=== PATIENT | male | born 1955 | race Caucasian/White ===

== ENCOUNTER 2020-01-21 11:34 | Emergency (ER) | payer OTHER ==
[~2020-01-21] VITALS: Ht 170.2 cm; Wt 95.3 kg
[2020-01-21 11:55] VITALS: BP 127/70
--- NOTE | 2020-01-21 12:06 | NUR ---
PT AMBULATED WITH WALKER TO ER BED 2
--- NOTE | 2020-01-21 12:23 | NUR ---
PT BIB SELF C/O L LEG AND ANKLE PAIN S/P MECHANICAL CLIP AND FALL. NO LOC/KO. ABRASION NOTED. NO DEFORMITY. AMBULATORY WITH WALKER. PT DENIES N/V/D; AAOX4, PERRL, UNSTEADY GAIT S/P PAIN AND WALKER; LUNGS CLEAR BL, BREATHING UNLABORED; HR EVEN AND REGULAR, BL PERIPHERAL PULSES PRESENT; BS ACTIVE X4, NO TENDERNESS TO PALPATION. PT DENIES ANY FEVER, CP, SOB, OR COUGH AT THIS TIME; PT STATES 5/10 PAIN AT THIS TIME; VSS; PATIENT POSITIONED FOR COMFORT; HOB ELEVATED; BEDRAILS UP X2; BED DOWN.
--- NOTE | 2020-01-21 13:32 | NUR ---
PA BAXTER AT BEDSIDE EVALUATING PATIENT.
[2020-01-21] MEDS ORDERED: BACITRACIN OINT 500 UNITS/GM PKT TP ONE (13:40)
--- NOTE | 2020-01-21 13:53 | NUR ---
EMT DIOGENES AND JONO DOING WOUND CARE , ANTIBACTERIAL APPLIED BY EMT .
[2020-01-21 14:54] VITALS: BP 120/72
--- NOTE | 2020-01-21 14:58 | NUR ---
Patient discharged with v/s stable. Written and verbal after care instructions given and explained regarding skin problem. Patient alert, oriented and verbalized understanding of instructions. Ambulatory with steady gait. All questions addressed prior to discharge. ID band removed. Patient advised to follow up with PMD. Rx of norco and bacitracin given. Patient educated on indication of medication including possible reaction and side effects. Opportunity to ask questions provided and answered.
== END 2020-01-21 14:58 | disposition home or self-care (01) ==
LOC: MED 11:34
DX: S93.402A Sprain of unspecified ligament of left ankle, initial encounter (principal); S80.212A Abrasion, left knee, initial encounter; S80.211A Abrasion, right knee, initial encounter; F03.90 Unspecified dementia, unspecified severity, without behavioral disturbance, psychotic disturbance, mood disturbance, and anxiety; I10 Essential (primary) hypertension; W18.09XA Striking against other object with subsequent fall, initial encounter; Y93.89 Activity, other specified; Y92.89 Other specified places as the place of occurrence of the external cause; Y99.8 Other external cause status
CPT/HCPCS: 73610; 99283; Q0092

== ENCOUNTER 2020-02-05 11:56 | Inpatient (IN) | payer OTHER ==
[~2020-02-05] VITALS: Ht 162.6 cm; Wt 117.5 kg
[2020-02-05] VITALS (39 sets, daily range): BP systolic 57–192; BP diastolic 21–92
--- NOTE | 2020-02-05 11:56 | NUR ---
BIBA TAKEN TO BED 10
--- NOTE | 2020-02-05 12:12 | NUR ---
PHARMACY CALLED FOR AMIODARONE DRIP.
--- NOTE | 2020-02-05 12:19 | NUR ---
airway via cricothyrotomy attempted but unsuccessful
--- NOTE | 2020-02-05 12:28 | NUR ---
7.5 ETT inserted via nasopharyngeal by Dr Alanis
--- NOTE | 2020-02-05 12:35 | NUR ---
FSBS 114 MG/DL
--- NOTE | 2020-02-05 12:40 | NUR ---
UNABLE TO DRAW ABG AT THIS TIME DUE TO HYPOVOLEMIC STATUS AND OCCASIONAL BRADYCARDIA DR. PARESH BOOKER AWARE
[2020-02-05] MEDS ORDERED: TRANEXAMIC ACID 1,000 MG in NACL 0.9% 50 ML IV STA (12:41)
[2020-02-05] MEDS ORDERED: TRANEXAMIC ACID IV ONE (12:45)
[2020-02-05] MEDS ORDERED: ETOMIDATE 20 MG/10 ML VIAL IVP ONE (12:45)
[2020-02-05] MEDS ORDERED: AMIODARONE 450 MG in DEXTROSE 5% 250 ML IV ONE (12:45)
[2020-02-05] MEDS ORDERED: NACL 0.9% IV ONE (12:45)
--- NOTE | 2020-02-05 12:47 | NUR ---
OGT inserted by Tom DERAS
--- NOTE | 2020-02-05 12:55 | NUR ---
XRAY AT BEDSIDE. WAREHOUSE FORKLIFT OPERATOR AT BEDSIDE.
[2020-02-05] MEDS ORDERED: TRANEXAMIC ACID 1,000 MG/10 ML VIAL ONE ×2 (13:06→13:41)
[2020-02-05] MEDS ORDERED: EPINEPHrine PFS 0.1 MG/ML SYR IVP ONE ×5 (13:10→14:58)
--- NOTE | 2020-02-05 13:10 | NUR ---
HR 46, NOTIFIED DR. AMEZCUA, RECEIVED VERBAL ORDER FOR EPI 1 MG IVP. EPI 1MG IVP ADMINISTERED AT THIS TIME.
--- NOTE | 2020-02-05 13:14 | NUR ---
HR: 70 96% NASOPHARYNGEAL TO VENT RR 19 BP 128/62
[2020-02-05] MEDS ORDERED: EPINEPHrine 1:1000 (1 mg/mL) 3 MG in DEXTROSE 5% 250 ML IV PRN ×2 (13:15→18:10)
[2020-02-05 13:16] LABS: BASOPHILS # (AUTO) 0.2 K/uL (0.00-0.22); BASOPHILS % (AUTO) 1.5 % (0.0-2.0); EOSINOPHILS # (AUTO) 0.1 K/uL (0-0.4); EOSINOPHILS % (AUTO) 0.4 % (0.0-4.0); HEMOGLOBIN 8.2 g/dL (12.0-18.0); LYMPHOCYTES # (AUTO) 3.1 K/uL (2.0-11.5); LYMPHOCYTES % (AUTO) 24.4 % (20.5-51.1); MEAN CORPUSCULAR HEMOGLOBIN 31 pg (27-31); MEAN CORPUSCULAR HGB CONC 30 g/dL (33-37); MEAN CORPUSCULAR VOLUME 101.3 fL (80-94); MONOCYTES # (AUTO) 0.5 K/uL (0.8-1.0); MONOCYTES % (AUTO) 3.8 % (1.7-9.3); NEUTROPHILS # (AUTO) 8.8 K/uL (1.8-7.7); NEUTROPHILS % (AUTO) 69.9 % (42.2-75.2); PLATELET COUNT (AUTO) 181 K/uL (140-450); RED BLOOD CELL COUNT(AUTO) 2.67 MIL/uL (4.20-6.10); RED CELL DISTRIBUTION WIDTH 16.1 % (11.6-13.7); WHITE BLOOD COUNT (AUTO) 12.6 K/uL (4.8-10.8)
--- NOTE | 2020-02-05 13:27 | NUR ---
HR 36, NOTIFIED DR. AMEZCUA, RECEIVED VERBAL ORDER FOR EPI 1MG IVP. ADMINISTERED EPI 1MG VIA IVP.
[2020-02-05 13:33] LABS: PROTHROMBIN TIME 17.8 secs (10.8-13.4)
--- NOTE | 2020-02-05 13:34 | NUR ---
64/M BIBA ALS, PT PRESENTING IN FULL ARREST, CPR IN PROGRESS BY EMS. UNRESPONSIVE, GCS 3, NO PULSE, ASTYOLE. ABD IS FIRM AND DISTENDED. IO IN RT TIBIA. ABRASIONS TO BL SHINS. LT UA SHUNT. HX ESRD ON HD. SEE CODE SHEET.
--- NOTE | 2020-02-05 13:39 | NUR ---
PER DR AMEZCUA TITRATE EPI DRIP TO HR GREATER/EQUAL TO 60 BPM
[2020-02-05 13:44] LABS: ALBUMIN 1.9 g/dL (3.4-5.0); TOTAL BILIRUBIN 0.6 mg/dL (0.0-1.0)
--- NOTE | 2020-02-05 13:48 | NUR ---
HR in 30s. Per Dr Alanis, admin EPI 1mg IVP and increase epi drip to 4mcg/min. Patient response: HR increased to 60s
[2020-02-05 13:50] LABS: CREATININE 8.1 mg/dL (0.6-1.3)
--- NOTE | 2020-02-05 13:59 | NUR ---
DR AMEZCUA AWARE UNABLE TO INSERT GARCIA CATH--NO FURTHER ORDERS AT THIS TIME.
--- NOTE | 2020-02-05 14:08 | NUR ---
output from OGT: 500 ML sanguineous drainage
[2020-02-05] MEDS ORDERED: MORPHINE SULFATE 2 MG/ML SYR IVP PRN (14:15)
[2020-02-05] MEDS ORDERED: DOCUSATE 100 MG/10 ML UDC PO PRN (14:15)
[2020-02-05] MEDS ORDERED: HYDROcodone/APAP 5/325 MG 1 TAB TAB PO PRN (14:15)
[2020-02-05] MEDS ORDERED: ZOLPIDEM 5 MG TAB PO PRN (14:15)
[2020-02-05] MEDS ORDERED: LORazepam 2 MG/ML VIAL IM/IVP PRN (14:15)
[2020-02-05] MEDS ORDERED: ONDANSETRON 4 MG/2 ML VIAL IM/IVP PRN (14:15)
[2020-02-05] MEDS ORDERED: ACETAMINOPHEN 325 MG TAB PO PRN (14:15)
[2020-02-05] MEDS ORDERED: NACL 0.9% 1,000 ML IV SCH (14:15)
--- NOTE | 2020-02-05 14:18 | NUR ---
HR DROPPING TO 30S. INCREASED EPI DRIP TO 5 MCG/MIN AT THIS TIME. NOTIFIED DR AMEZCUA.
--- NOTE | 2020-02-05 14:22 | NUR ---
1 MG EPI IVP ADMINISTERED AT THIS TIME PER DR AMEZCUA ORDERS
--- NOTE | 2020-02-05 14:23 | NUR ---
DR AMEZCUA AT BEDSIDE
--- NOTE | 2020-02-05 15:00 | NUR ---
NOTIFIED DR. AMEZCUA OF RECTAL 84.9. RECEIVED ORDER FOR SUE VERGARA.
[2020-02-05 15:13] LABS: CHOL/HDL RATIO 2.2 (1-4.5); MAGNESIUM 3.1 mg/dL (1.8-2.4); THYROID STIMULATING HORMONE 3.93 uIU/mL (0.34-3.74)
[2020-02-05 15:16] LABS: PHOSPHORUS 13.1 mg/dL (2.5-4.9)
--- NOTE | 2020-02-05 15:23 | NUR ---
ABG SAMPLE REPORT REVIEWED BY DR. PARESH CESPEDES NO NEW ORDERS
[2020-02-05] MEDS ORDERED: DEXTROSE 50% 50 ML SYR IVP PRN (15:30)
[2020-02-05] MEDS ORDERED: INSULIN LISPRO SLIDING SCALE 100 UNITS/ML VIAL SUBQ PRN (15:30)
--- NOTE | 2020-02-05 15:30 | NUR ---
PATIENT TRANSFERRED TO ICU-2 VIA VENTILATOR INTACT OXYGEN LINE CONNECTED TO E-TANK BELOW GURNEY SATURATION 96% HR 64 TOLERATED TRANSFER WELL WITHOUT ADVERSE REACTIONS NOTED
--- NOTE | 2020-02-05 15:30 | NUR ---
Pt left ER bed 10 at this time, accompanied by RN & EMT & RT, to transfer to ICU bed 2
[2020-02-05] MEDS ORDERED: NOREPINEPHRINE 8 MG in DEXTROSE 5% 250 ML IV PRN (15:35)
--- NOTE | 2020-02-05 15:42 | NUR ---
ADMITTED FROM ER THIS 64 YEAR OLD MALE PER YOGI ACCOMPANIED BY ER RNS AND RT S/P FULL ARREST. NTT TO VENT. TV 450, FI02 450, AC 20 MIN. PEEP 5. 02 SAT 100%. SL. BLEEDING NOTED ON BOTH NARES. LUNGS SOUND DIMINISHED.OGT IN PLACE. PLACEMENT VERIFIED BY AIR CHECK. NO FURTHER BLEEDING NOTED FROM OGT. BRUISING NOTED ON THE RT. EYE. IV EPINEPHRINE DRIP INFUSING AT 7 MCG/MIN VIA LT AC G 20 ANGIO. TRANEXANIC SCID DRIP INFUSING AT 32.5 ML/HR VIA RT HAND G 22 IV SITE. ON AMIODARONE DRIP AT 33 MLS/HR. DC'D. PT;S HR 41/MIN. DR. WALKER AT BEDSIDE. PT HAS MULTIPLE ABRASIONS AND SKIN TEARS ON EXT. WITH LEFT UPPER ARM AV FISTULA, BRUIT HEARD WITH DOPPLER.
--- NOTE | 2020-02-05 15:43 | NUR ---
ABG SAMPLE REPORT REVIEWED BY DR. RAYMON WALKER 2 AMPS OF BICARBONATE ORDER NO RESPIRATORY ORDERS GIVEN
[2020-02-05] MEDS ORDERED: SODIUM BICARBONATE 8.4% PFS 50 MEQ/50 ML SYR IVP ONE (15:44)
--- NOTE | 2020-02-05 15:48 | NUR ---
CALLED DR. SEAN JACOBO [phone] REVIEWED ABG SAMPLE REPORT MD FREDERICK TO FACILITY INFORMED THAT DR. CARMEN WALKER REVIEWED ABG SAMPLE REPORT PREVIOUSLY AND ORDERED 2 AMPS OF BICARBONATE
--- NOTE | 2020-02-05 15:50 | NUR ---
Patient will be admitted to care of DR PADILLA. Admited to ICU. Will go to room 2. Belongings list completed. Report to AVANI DERAS.
[2020-02-05] MEDS ORDERED: MIDAZOLAM MDV 50 MG in NACL 0.9% 40 ML IV PRN (16:00)
--- NOTE | 2020-02-05 16:00 | NUR ---
DR. JACOBO HERE TO SEE AND EXAMINE PT. SPOKE WITH PT'S BROTHER BERTIN.
--- NOTE | 2020-02-05 16:00 | NUR ---
BP 77/41, EPINEPHRINE DRIP INCREASED TO 8 MCG/MIN.
--- NOTE | 2020-02-05 16:05 | NUR ---
BP 73/39, EPINEPHRINE DRIP INCREASED TO 9 MCG/MIN.
[2020-02-05] MEDS ORDERED: SODIUM BICARBONATE 8.4% PFS 50 MEQ/50 ML SYR IVP SCH (16:08)
--- NOTE | 2020-02-05 16:10 | NUR ---
BP 81/39, EPINEPHRINE INCREASED TO 10 MCG/MIN.
--- NOTE | 2020-02-05 16:14 | NUR ---
0.9NS 60 ML/HR STARTED VIA RT IO SITE.
--- NOTE | 2020-02-05 16:15 | NUR ---
BP 78/48, HR 69/MIN. DR. SANTA NOTIFIED THAT WE NEED ANOTHER VASOPRESSOR FOR BP MAINTENANCE.
[2020-02-05] MEDS ORDERED: NOREPINEPHRINE 4 MG in DEXTROSE 5% 250 ML IV SCH (16:30)
[2020-02-05] MEDS: BLOOD GLUCOSE MONITORING 1 DEV DEV FS SCH ×2 (16:30→20:32)
--- NOTE | 2020-02-05 16:30 | NUR ---
ACCUCHECK BS DONE 110. NO COVERAGE NEEDED
[2020-02-05] MEDS ORDERED: NITROGLYCERIN 0.4 MG TAB SL PRN (16:50)
--- NOTE | 2020-02-05 16:50 | NUR ---
BP 75/45 LEVOPHED STARTED AT 5 MCG/MIN. (SEE IV SPREADSHEET)
[2020-02-05] MEDS ORDERED: CALCIUM ACETATE 667 MG TAB PO SCH (17:09)
[2020-02-05] MEDS ORDERED: EPINEPHrine 1:1000 (1 mg/mL) 1 MG in DEXTROSE 5% 250 ML IV PRN (17:15)
[2020-02-05 17:45] LABS: ALBUMIN 1.9 g/dL (3.4-5.0); ANION GAP 25.8 (8-16); CARBON DIOXIDE 20.5 mmol/L (21-32); POTASSIUM 4.3 mmol/L (3.5-5.1); TOTAL BILIRUBIN 1.3 mg/dL (0.0-1.0)
--- NOTE | 2020-02-05 17:45 | NUR ---
RECEIVED CALL FROM JULY IN LAB RE: CRITICAL LAB VALUES. CREATININE 8.1, BUN 45, AST 1305, ALT 1869. Addendum: 02/05/20 at 1828 by Dami Delatorre RN NOTIFIED PHYSICIAN AT 1750.
[2020-02-05 17:48] LABS: CREATININE 8.1 mg/dL (0.6-1.3)
[2020-02-05] MEDS ORDERED: ALBUMIN HUMAN 25% 100 ML IV SCH (18:30)
[2020-02-05 18:53] LABS: ALBUMIN 1.9 g/dL (3.4-5.0); TOTAL BILIRUBIN 1.3 mg/dL (0.0-1.0)
[2020-02-05] MEDS ORDERED: NOREPINEPHRINE 16 MG in DEXTROSE 5% 250 ML IV PRN (18:55)
--- NOTE | 2020-02-05 19:00 | NUR ---
PICC LINE NURSE MECCA HERE TO INSERT PICC LINE.
--- NOTE | 2020-02-05 19:20 | NUR ---
RECEIVED BEDSIDE SHIFT REPORT FROM DAY SHIFT NURSE. PT IS UNRESPONSIVE TO TACTILE STIMULI. PUPILS UNEQUAL. LEFT PUPIL DILATED AND FIXED. RIGHT PUPIL NONREACTIVE. GCS=3. PT HAS NASOTRACHEAL TUBE IN THE RIGHT NARE SIZE 7.5 VENT SETTINGS ARE ACVC FIO2 100% VT 450 RATE 20 PEEP 5. LUNG SOUNDS ARE CLEAR THROUGHOUT ALL LOBES. S1 AND S2 HEARD. PT IS SB ON MONITOR IN LOW 50'S. OGT IN PLACE. BLOODY RESIDUALS <10 CC. AIR HEARD FROM AUSCULTATION THROUGH OGT. ABDOMEN LARGE, ROUND, FIRM BOWEL SOUNDS WERE NOT HEARD. PT HAS AV FISTULA IN THE LEFT UPPER ARM THAT IS CURRENTLY BE UTILIZED BY DIALYSIS NURSE. PT HAS 20G PIV LEFT ARM AND IO IN THE RIGHT LOWER LEG. PT IS CURRENTLY GETTING PICC LINE IN THE RIGHT UPPER ARM. PIV 22G ON THE RIGHT HAND. MEDICATIONS CURRENTLY RUNNING INCLUDE: TRANEXAMIC ACID 1000 MG AT 32.5 ML/HR, LEVOPHED 4MG/250ML AT 30 MCG/MIN, EPINEPHRINE 3MG/250ML AT 10 MCG/MIN, AND NS AT 60 ML/HR. B/P CURRENT 145/47. TEMP 80.[address] HEATING MEASURES INCLUDED W/ DIALYSIS. SKIN IS NON-INTACT. ABRASIONS SEEN ON BILATERAL UPPER AND LOWER EXTREMITIES AND TOP OF HEAD, BRUISING IN RIGHT EYE. SCARRING ON CHEST MIDLINE. WILL FOLLOW UP W/ DIALYSIS NURSE AND PICC LINE NURSE.
--- NOTE | 2020-02-05 19:56 | NUR ---
RECEIVED PT FROM DAY SHIFT ON DOCUMENTED SETTINGS. VENT PLUGGED INTO RED OUTLET. ALARMS AUDIBLE AND WORKING.BMV AT BEDSIDE. NASOTRACHEAL SECURED WITH TAPE. WILL CONT TO MONITOR
--- NOTE | 2020-02-05 20:00 | NUR ---
XRAY HERE FOR PICC LINE PLACEMENT, PICC LINE NURSE REVIEWED IMAGE, AND VERBAL ORDER: OK TO USE PICC LINE, RESIDENT MD MADE AWARE. PICC LINE DOUBLE LUMEN ARE SALINE LOCKED UNTIL ORDERS ARE COMPLETE.
--- NOTE | 2020-02-05 20:10 | NUR ---
LEVOPHED AND EPINEPHRINE DRIPS MOVED TO PICC LINE SITE. NEW BAG OF LEVOPHED STARTED WITH 16MG/250ML. BLOOD PRESSURE STABLE, HEART RATE SR ON MONITOR. WILL TITRATE DRIPS TO MAINTAIN SBP GREATER THAN 90.
--- NOTE | 2020-02-05 20:10 | NUR ---
HEMODIALYSIS ENDED. Addendum: 02/06/20 at 0025 by Eli Prado RN 0 ML OUTPUT, 200 ML (27%) ALBUMIN GIVEN, TEMPERATURE INCREASED WITH DIALYSIS TO 98.2, LEFT UPPER ARM FISTULA SECURED AND DRESSED, ORDERED TO REPLACE DRESSING IF SOILED.
[2020-02-05] MEDS ORDERED: ATORVASTATIN 20 MG TAB PO SCH (21:00)
[2020-02-05] MEDS ORDERED: PIPERACILLIN/TAZOBACTAM 2.25 GM in DEXTROSE 5% 50 ML IV SCH (21:00)
--- NOTE | 2020-02-05 21:05 | NUR ---
PT HAD A VERY LARGE BOWEL MOVEMENT, LOOSE/LIQUID, BROWN STOOL. PROVIDED SKIN CARE AND PERINEAL CARE. CHANGED GOWN AND LINEN, 3 PERSON ASSIST, SAFETY MEASURES REMAIN IN PLACE, PT TOLERATED WELL, OFFLOADED PRESSURE AREAS, NO SIGNS OF SKIN BREAKDOWN AT SACRUM OR BACK.
[2020-02-05] MEDS: PANTOPRAZOLE 40 MG INJ VIAL IVP SCH ×2 (22:28→23:46)
--- NOTE | 2020-02-05 22:30 | NUR ---
2 RT's AND PRIMARY RN AT BEDSIDE TO SECURE NASOTRACHEAL TUBE TO RIGHT NARE. LEFT NARE IS INTERMITTENTLY BLEEDING, CAUSING THE TAPE/SECUREMENT TO LOOSEN. OGT ALSO NOT COMPLETELY SECURED, SMALL AMOUNT OF BLOOD SEEPING ORALLY, LIGHT SUCTION PROVIDED AND GAUZE IN PLACE TO ABSORB AND CLEAN. PT DOES NOT WITHDRAW TO LIGHT PAIN/SUCTION. PUPILS REMAIN UNEQUAL, LEFT EYE DILATED, BOTH DO NOT CONSTRICT WITH LIGHT. BED LOCKED AND IN LOWEST POSITION, SIDERAILS UP, HOB 30 DEGREES.
[2020-02-05] MEDS ORDERED: CALCIUM ACETATE 667 MG TAB ONE (23:45)
[2020-02-06] VITALS (7 sets, daily range): BP systolic 86–126; BP diastolic 34–98
--- NOTE | 2020-02-06 00:10 | NUR ---
INSERTED GARCIA CATHETER. SECURED TO RIGHT THIGH. RETRIEVED URINE SIMPLE. WILL SEND TO LAB.
--- NOTE | 2020-02-06 00:30 | NUR ---
DR. WILEY IN TO ASSESS PATIENT AND GET UPDATE. RESIDENT MD MADE AWARE THAT PATIENT IS TOO UNSTABLE TO TAKE TO CT AT THE TIME. MD AWARE PUPILS ARE UNEQUAL AND FIXED. PATIENT IS ON LEVOPHED AND EPINEPHRINE. TEMPERATURE STARTING TO DECREASE (95.0-95.9) PULSE OXIMETER UNABLE TO GET GOOD WAVE FORM. BLOOD PRESSURE READINGS ARE STABLE BUT WILL LOSE READING. WILL CHANGE CUFF AND PULSE OX.
--- NOTE | 2020-02-06 00:50 | NUR ---
RNS AT BEDSIDE TO REPLACE PULSE OX AND BP CUFF. DESPITE NEW PULSE OX AND BP CUFF AND NEW SITE CHANGE, WAS NOT ABLE TO GET READING ON MONITOR. PALPATED FOR RADIAL AND CAROTID PULSES. WAS UNABLE TO FEEL FOR PULSES. AUSCULTATED FOR PULSE, UNABLE TO HEAR PULSES. AUSCULTATED FOR CAROTID PULSE VIA DOPPLER, UNABLE TO GET PULSE. UNABLE TO GET BP. SINUS DIRK ON MONITOR HR BELOW 50 BPM. CODE BLUE WAS CALLED 0109. RTS, ER , RESIDENT MD AT BEDSIDE AT 0109. LEVOPHED AND EPINEPHRINE DRIPS CONTINUOUSLY RUNNING. PT IS MODIFIED CODE, ACLS DRUGS AND BIPAP ONLY. BLOOD GLUCOSE TAKEN. GLUCOSE AT 66. 3 ROUNDS OF EPINEPHRINE PUSHED. 1 ROUND OF SODIUM BICARB AND CALCIUM CHLORIDE PUSHED. AFTER PULSE CHECKS VIA DOCTOR CHEW, WAS UNABLE TO DETECT PULSES/HEART SOUNDS. MONITOR SHOWING PEA. PT IS COLD TO TOUCH. REMAINS ON VENTILATOR. CANNOT DETECT PULSES VIA DOPPLER AT ALL SITES INCLUDING FEMORAL. ER MD AUSCULTATED FOR HEART SOUNDS AND PALPATED FOR PULSES. UNABLE TO DETECT HEARTS TONES/PULSES. DOCTOR CHEW PRONOUNCED TIME OF AT 0125.
--- NOTE | 2020-02-06 01:42 | NUR ---
CODE CALLED ON PATIENT DUE TO NO BLOOD PRESSURE,NO PULSE. PT TIME OF WAS 0125. ORDERS TO DISCONTINUE VENT WAS PUT IN BY DR. CAPO WILEY. VENT WAS REMOVED FROM PATIENT ROOM.
--- NOTE | 2020-02-06 01:49 | NUR ---
CALLED INTERNAL CONTROL MANAGER'S OFFICE. THEY WILL CALL BACK FOR REPORT.
--- NOTE | 2020-02-06 01:55 | NUR ---
CALLED [facility]. SPOKE TO SAMAN JEAN. REF: [id number]. [facility] WILL CALL BACK TO FOLLOW UP.
--- NOTE | 2020-02-06 02:43 | NUR ---
EXECUTIVE VICE PRESIDENT AND CHIEF FINANCIAL OFFICER'S OFFICE CALLED. GAVE KIA ARMANDO REPORT. . EXECUTIVE VICE PRESIDENT AND CHIEF FINANCIAL OFFICER HAS RELEASED BODY.
[2020-02-06 02:52] LABS: APPEARANCE,URINE CLOUDY (CLEAR); BILIRUBIN,URINE NEGATIVE (NEGATIVE); BLOOD, URINE 3+ (NEGATIVE); COLOR,URINE YELLOW (YELLOW); LEUKOCYTE ESTERASE ,URINE 3+ (NEGATIVE); NITRITE, URINE NEGATIVE (NEGATIVE); PH,URINE 7.5 (5.0-9.0); UGLUCOSE 1+ (NEGATIVE)
[2020-02-06 03:07] LABS: RBC,URINE TOO NUMEROUS TO COUN /HPF (0-5); WBC,URINE TOO MANY TO COUNT /HPF (0-5)
[2020-02-06 03:08] LABS: BARBITURATE, URINE NEGATIVE ng/ml (NEG <=200); BENZODIAZEPINE, URINE NEGATIVE ng/mL (NEG <=200); CANNABINOID, URINE NEGATIVE ng/mL (NEG <=50); COCAINE, URINE NEGATIVE ng/mL (NEG <=300); OPIATE, URINE POSITIVE ng/mL (NEG <=2000); PHENCYCLIDINE SCREEN,URINE NEGATIVE ng/mL (NEG <=25)
--- NOTE | 2020-02-06 03:10 | NUR ---
ALL EQUIPMENT AND TUBES REMOVED, PERIPHERAL IV's AND IO REMOVED.PATIENT IS BLEEDING HEAVILY, KEPT PICC LINE IN PLACE, RT AT BEDSIDE TO EXTUBATE. ALL SUPPLIES DISCARDED IN BIOHAZARDOUS WASTE BAG. PROVIDED POST MORTEM CARE, TOE TAG AND BODY BAG TAG IN PLACE, ID BAND REMOVED, NO PERSONAL BELONGINGS WITH PATIENT. PENDING MORTUARY PICKUP.
--- NOTE | 2020-02-06 04:20 | NUR ---
PATIENTS DAUGHTER HAS NOT YET DECIDED ON MORTUARY. RN GAVE INFO ON CONTRACTED MORTUARY WITH [facility], AND PROVIDED PHONE NUMBERS. PATIENTS DAUGHTER WILL BE BACK WITH FINAL MORTUARY DECISION.
--- NOTE | 2020-02-06 04:50 | NUR ---
PT'S DAUGHTER, ANGELITA CALLED ICU AT 0447 TO LET NURSE KNOW THAT THEY CAN CALL [employer] [facility] TO [employer] BODY. THEY WILL REARRANGE FOR TRANSFER OF BODY FROM [facility] WHEN THEY COMPLETE THEIR PLANS. CALLED [facility] [facility] AT 0450 TO LET THEM KNOW ABOUT PASSING OF PT. THEY TOLD NURSE THAT THEY WILL [employer] PT NOW. NO ETA PROVIDED.
--- NOTE | 2020-02-06 05:08 | NUR ---
FOLLOWUP FROM [facility], SPOKE WITH SAMAN, FAMILY REFUSED/DENIED ORGAN DONATION. [facility] CONFIRMS THEY WILL NOT MOVE FORWARD WITH CASE.
--- NOTE | 2020-02-06 06:11 | NUR ---
FOLLOWED UP W/ [employer] [facility] ON [employer] OF BODY. ETA OF PICKUP WAS BETWEEN [phone].
--- NOTE | 2020-02-06 08:53 | NUR ---
[facility] CAME IN TO PICKED UP THE BODY, ALL THE PAPER WORK DONE AND SIGNED.
== END 2020-02-06 08:53 | disposition expired | DRG 871 ==
LOC: MED 11:56 → MIC 14:18
PROVIDERS: ADMIT General Practice; ATTEND General Practice
PROC: 5A1935Z Respiratory Ventilation, Less than 24 Consecutive Hours (ICD-10-PCS; principal; 2020-02-05)
PROC: 5A1D70Z Performance of Urinary Filtration, Intermittent, Less than 6 Hours Per Day (ICD-10-PCS; 2020-02-05)
PROC: 02HV33Z Insertion of Infusion Device into Superior Vena Cava, Percutaneous Approach (ICD-10-PCS; 2020-02-05)
PROC: B548ZZA Ultrasonography of Superior Vena Cava, Guidance (ICD-10-PCS; 2020-02-05)
PROC: 0BH17EZ Insertion of Endotracheal Airway into Trachea, Via Natural or Artificial Opening (ICD-10-PCS; 2020-02-05)
PROC: 5A12012 Performance of Cardiac Output, Single, Manual (ICD-10-PCS; 2020-02-05)
DX: A41.9 Sepsis, unspecified organism (principal); J69.0 Pneumonitis due to inhalation of food and vomit; J96.02 Acute respiratory failure with hypercapnia; N18.6 End stage renal disease; N17.0 Acute kidney failure with tubular necrosis; I50.43 Acute on chronic combined systolic (congestive) and diastolic (congestive) heart failure; E43 Unspecified severe protein-calorie malnutrition; J96.01 Acute respiratory failure with hypoxia; Z68.41 Body mass index [BMI] 40.0-44.9, adult; I13.2 Hypertensive heart and chronic kidney disease with heart failure and with stage 5 chronic kidney disease, or end stage renal disease; E87.4 Mixed disorder of acid-base balance; G93.40 Encephalopathy, unspecified; I46.9 Cardiac arrest, cause unspecified; Z99.2 Dependence on renal dialysis; Z90.49 Acquired absence of other specified parts of digestive tract; E87.5 Hyperkalemia; E83.41 Hypermagnesemia; D53.1 Other megaloblastic anemias, not elsewhere classified; E66.01 Morbid (severe) obesity due to excess calories; E11.22 Type 2 diabetes mellitus with diabetic chronic kidney disease; Z90.5 Acquired absence of kidney
CPT/HCPCS: 31500; 36415; 36600; 71045; 80053; 80076; 80305; 81001; 82803; 82948; 83036; 83605; 83690; 83735; 83880; 84100; 84134; 84443; 84484; 85025; 85610; 85730; 87040; 87070; 87081; 87086; 87205; 92950; 93005; 96365; 96375; 99291; C9113; J0171; J0282; J2543; J3490; J7030; J7060; P9046; Q0092